=== PATIENT | female | born 1985 | race Two or more races ===

== ENCOUNTER → 2024-11-01 | Outpatient (CLI) | payer OTHER, MEDICAID, SELFPAY ==
--- NOTE | 2024-11-01 08:30 | XR_ITS ---
Examination: Abdomen sonogram, complete Date and time of exam: November 01, 2024 0826 hours INDICATIONS: Diarrhea after eating food 9 months. Technique: Multiple real-time grayscale transabdominal sonographic images of the abdomen have been obtained. Findings: No visualization gallbladder Common bile duct 10 mm no stones Pancreatic head 2.6 cm Aorta not enlarged Liver 15 cm fatty liver Normal hepatopedal portal venous flow Patent IVC Right kidney 9.8 cm cortex 1.9 cm Left kidney 9.8 cm renal cortex 2.7 cm Spleen 8.1 cm IMPRESSION: Common bile duct 10 mm, no common bile duct stones noted
== END | disposition home or self-care (01) ==
PROVIDERS: PCP Internal Medicine Gastroenterology; Referring Provider Internal Medicine Gastroenterology; Visit Provider Internal Medicine Gastroenterology
DX: R13.10 Dysphagia, unspecified (principal)
CPT/HCPCS: 76700

== ENCOUNTER 2024-11-18 05:10 | Emergency (ER) | payer BC, OTHER, MEDICAID, SELFPAY ==
[2024-11-18 05:11] VITALS: BMI 35.9
[2024-11-18 05:25] VITALS: BP 124/73; PULSE 84; RESP 18; TEMP 36.8; O2SAT 97
--- NOTE | 2024-11-18 05:42 | EDRME_ITS ---
Rapid Medical Screening Exam [facility] Arrival date/time: 11/18/24 05:10 39F with history of cholecystectomy and appendectomy presents to ED with 4 days of worsening dysuria. Patient went to and has been taking Macrobid w/o relief. Patient states there is now some low back/flank pain and N/V. Chief Complaint: Headache Vital signs: Vital Signs Temperature 98.3 F 11/18/24 05:25 Pulse Rate 84 11/18/24 05:25 Respiratory Rate 18 11/18/24 05:25 Blood Pressure 124/73 11/18/24 05:25 Pulse Oximetry (%) 97 11/18/24 05:25 Oxygen Delivery Method Room Air 11/18/24 05:25
[2024-11-18] MEDS: ONDANSETRON ODT 4 MG TABRAP PO (06:11)
[2024-11-18] MEDS: HYDROcodone/APAP 5/325 TABLET 1 TAB PO (06:11)
[2024-11-18 06:24] LABS: Basophils % (Auto) 0 % (0-2.5); Eosinophils # (Auto) 0.1 Thou/mm3 (0.0-0.5); Eosinophils % (Auto) 1 % (0-10); Hematocrit 37.9 % (36.0-46.0); Hemoglobin 13.2 g/dL (12.0-16.0); Immature Granulocytes % (Auto) 0 % (0-0); Immature Granulocytes Auto 0.03 Thou/mm3 (0.00-0.00); Lymphocytes # (Auto) 2.2 Thou/mm3 (1.0-4.8); Lymphocytes % (Auto) 28 % (10-50); Mean Corpuscular HGB Conc 34.8 g/dl (31.0-37.0); Mean Corpuscular Hemoglobin 30.5 pg (25.0-35.0); Mean Corpuscular Volume 88 fL (80-100); Monocytes # (Auto) 0.6 Thou/mm3 (0.0-0.8); Monocytes % (Auto) 8 % (0-12); Neutrophils % (Auto) 63 % (37-80); Nucleated Red Blood Cell % 0 /100 WBC (0); Platelet Count 283 Thou/mm3 (140-440); RDW Standard Deviation 39.2 fL (36.4-46.3); Red Blood Count 4.33 Miln/mm3 (4.00-5.20)
[2024-11-18 06:52] LABS: Alanine Aminotransferase 15 U/L (10-49); Albumin, Serum 4.4 gm/dL (3.5-5.0); Albumin/Globulin Ratio 1.5 (1.2-2.2); Alkaline Phosphatase 64 U/L (46-116); Anion Gap 7 (7-16); Aspartate Amino Transferase 19 U/L (0-34); BUN/Creatinine Ratio 16 Ratio (12-20); Bilirubin,Total 0.4 mg/dL (0.3-1.2); Blood Urea Nitrogen 11 mg/dL (9-23); Calcium 9.7 mg/dL (8.3-10.6); Calcium (Corrected) 9.7 mg/dL (8.5-10.1); Carbon Dioxide 27.8 mMol/L (20.0-31.0); Chloride 107 mMol/L (98-107); Creatinine (Component) 0.7 mg/dL (0.6-1.3); Estimated Creatinine Clearance 107.6 mL/min (>60); Glucose 103 mg/dL (74-106); Osmolality,Calculated 282 (275-295); Potassium 4.6 mMol/L (3.4-5.1); Sodium 142 mMol/L (136-145); Total Protein 7.4 gm/dL (5.7-8.2); eGFR > 60 See Note
[2024-11-18 06:53] LABS: Collection Type, Urine Clean Catch
[2024-11-18 07:02] LABS: Bilirubin,Urine Negative (Negative); Blood,Urine Negative (Negative); Clarity,Urine Clear (Clear/Hazy); Color,Urine Yellow (Lt Yel-Yel); Culture Indicated,Urine Not Indicated; Glucose, Urine Negative (Negative); Ketones,Urine 1+ (Negative); Leukocyte Esterase,Urine Negative (Negative); Nitrite,Urine Negative (Negative); Protein,Urine Trace (Neg - Trace); RBC,Urine 3 /hpf (0-3); Specific Gravity,Urine 1.028 (1.001-1.035); Squamous Epithelial Cell,Urine 14 /hpf (0-5); Urobilinogen,Urine Negative mg/dL (0.0-1.0); WBC,Urine 1 /hpf (0-5)
[2024-11-18 07:06] LABS: HCG Qualitative,Urine Negative
--- NOTE | 2024-11-18 08:10 | XR_ITS ---
Examination: Pelvic ultrasound, transabdominal, complete Technique: Transabdominal ultrasound of the pelvis performed using grayscale imaging Date and time of exam: November 18, 2024 0956 hours INDICATIONS: Pelvic pain radiating to the lower back months FINDINGS: Uterus 10.2 cm endometrial stripe 0.88 cm No uterine mass or intrauterine gestation Right ovary obscured by bowel gas Left ovary 3.0 cm arterial flow IMPRESSION: No uterine mass or intrauterine gestation
--- NOTE | 2024-11-18 11:55 | PD.EDFMALE ---
ED Female Urogenital RME/HPI General Chief complaint: Headache Stated complaint: HEADACHE, LOWER BACK PAIN Time Seen by Provider: 11/18/24 07:48 Arrival date/time: 11/18/24 05:10 39F with history of cholecystectomy and appendectomy presents to ED with 4 days of worsening dysuria. Patient went to and has been taking Macrobid w/o relief. Patient states there is now some low back/flank pain and N/V. There are no other associated symptoms or aggravating factors no other modifying factors, patient denies taking medication before coming to ER today Limitations: no limitations RME / HPI RME / HPI Narrative: 11/18/24 05:10 39F with history of cholecystectomy and appendectomy presents to ED with 4 days of worsening dysuria. Patient went to and has been taking Macrobid w/o relief. Patient states there is now some low back/flank pain and N/V. Related Data Previous Rx's ?Medication ?Instructions ?Recorded hydrocodone 10 mg-acetaminophen 1 tab PO Q6H PRN pain #28 tabs 02/03/24 325 mg tablet ibuprofen 800 mg tablet 800 mg PO Q8H PRN pain #60 tabs 02/03/24 hydrocodone 5 mg-acetaminophen 325 1 tab PO BID PRN pain #6 tabs 11/18/24 mg tablet Allergies Allergy/AdvReac Type Severity Reaction Status Date / Time ketorolac (From Toradol) Allergy Intermediate Hives Verified 11/18/24 05:14 nut - unspecified Allergy Verified 11/18/24 05:14 peanut Allergy Verified 11/18/24 05:14 sesame seed Allergy Verified 11/18/24 05:14 Review of Systems Review of Systems Systems Reviewed: All systems reviewed, normal except as documented Constitutional Constitutional: Reports system reviewed and no additional complaints, except as documented, Denies fever(s) and Reports headache(s) Eyes Eyes: Reports system reviewed and no additional complaints, except as documented and Denies blurry vision ENT Ears, Nose, Mouth, and Throat: Reports system reviewed and no additional complaints, except as documented, Reports headache(s), Denies nasal congestion and Denies nasal discharge Cardiovascular Cardiovascular: Reports system reviewed and no additional complaints, except as documented, Denies chest pain and Denies dyspnea Respiratory Respiratory: Reports system reviewed and no additional complaints, except as documented, Denies chest congestion, Denies cough and Denies dyspnea Gastrointestinal Gastrointestinal: Reports system reviewed and no additional complaints, except as documented and Denies abdominal pain Genitourinary Genitourinary: Reports system reviewed and no additional complaints, except as documented, Denies abnormal vaginal bleeding and Reports pelvic pain Integumentary/Breasts Skin/Breast: Reports system reviewed and no additional complaints, except as documented and Denies rash Neurologic Neurologic: Reports system reviewed and no additional complaints, except as documented, Reports as per HPI and Reports headache(s) Past Medical History Past Medical History NEUROLOGIC: Negative Neurological Disorders or Seizures CARDIAC: Positive Hypertension; Negative Cardiac Disorders or Congestive Heart Failure RESPIRATORY: Positive Sleep Apnea; Negative Chronic Obstructive Pulmonary Disease (COPD), Asthma, Emphysema, Pneumonia, Cystic Fibrosis, Tuberculosis or Pulmonary Edema GASTROINTESTINAL: Positive Gastrointestinal Disorders, Gastrointestinal Bleed, Diverticulitis, Irritable Bowel, Hiatal Hernia, Hemorrhoids, Gastroesophageal Reflux Disease and Obesity; Negative Hepatitis, Cirrhosis, Pancreatitis, Celiac Disease, Gall Bladder Disease, Esophageal Varices, Ortega's Esophagus, Colitis, Ulcerative Colitis, Diverticulosis, Ulcer, Colorectal Cancer, Crohn's Disease or Obstructive Bowel GENITOURINARY: Positive Genitourinary Disorders and Kidney Stones; Negative Renal Disease, Polycystic Kidney Disease, Neurogenic Bladder, Dialysis or Prostate Cancer REPRODUCTIVE: Positive Previous Pregnancies; Negative Breast Cancer, Endometriosis, Pelvic Inflammatory Disease or Testicular Cancer MUSCULOSKELETAL: Negative Musculoskeletal Disorders, Bone Cancer, Carpal Tunnel Syndrome or Fractures ENT: Negative Cataracts, Glaucoma, Blind, Retinal Detachment, Macular Degeneration, Ear Infection, Deafness or Eye Prosthesis ENDOCRINE: Negative Endocrine Disorders, Diabetes Mellitus Type 1 or Diabetes Mellitus Type 2 HEMATOLOGIC: Negative Blood Disorders or Sickle Cell Disease OTHER HISTORY: Positive Chicken Pox; Negative Autoimmune Disease, Shingles, Blood Transfusions, Anesthesia Reactions, Organ Transplant, MRSA, Human Immunodeficiency Virus (HIV), Measles, Mumps, Rubella (Hungarian Measles), Pertussis, Clostridium Difficile, Cancer, Breast Cancer, Cervical Cancer, Colorectal Cancer, Lung Cancer, Ovarian Cancer, Prostate Cancer or Testicular Cancer Family History FAMILY HISTORY: Negative Family Psychiatric Problems, Family Respiratory Disorders, Family Cardiac Disorders, Family Gastrointestinal Problems, Family Cancer, Family Surgery or Family Anesthesia Reaction Surgical History SURGICAL: Positive Abdominal Surgery, Tubal Ligation and Section; Negative Cardiac Surgery, Endocrine Surgery, Ear Surgery, Tympanostomy Tube, Eye Surgery, Nose Surgery, Oral Surgery, Tonsillectomy, Adenoidectomy, Cochlear Implant, Corneal Transplant, Throat Surgery, Tracheostomy, Gastric Bypass Surgery, Gastrostomy, Bowel Surgery, Nephrectomy, Transurethral Resection, Joint Replacement, Amputation, Open Reduction Internal Fixation, Arthroscopy, Neurologic Surgery, Brain Shunt, Mastectomy, Lumpectomy, Hysterectomy or Organ Transplant Social History SMOKING STATUS: Never smoker ED Exam General Limitations: Present no limitations General appearance: Present alert and in no apparent distress Head Head exam: Present atraumatic, normocephalic and normal inspection Eye Eye exam: Present normal appearance, PERRL and EOMI; Absent conjunctival injection ENT ENT exam: Present normal exam, normal oropharynx and mucous membranes moist Neck Neck exam: Present normal inspection, full ROM and trachea midline Chest Chest inspection: Present normal inspection and symmetric chest wall rise Respiratory Respiratory exam: Present normal lung sounds bilaterally; Absent respiratory distress Cardiovascular Cardiovascular exam: Present regular rate, normal rhythm and normal heart sounds Abdominal Exam Abdominal exam: Present soft and normal bowel sounds; Absent distention, tenderness, guarding, rebound or rigidity Extremities Exam Extremities exam: Present normal inspection and full ROM Back Exam Back exam: Present normal inspection and full ROM Neurological Exam Neurological exam: Present alert, oriented X3, CN II-XII intact, normal gait and reflexes normal; Absent motor sensory deficit Psychiatric Psychiatric exam: Present normal affect and normal mood Skin Skin exam: Present warm, dry, intact and normal color; Absent rash Course Quality Measures none Orders Category Date Time Status US pelvic complete Stat Exams 11/18/24 08:10 Completed CBC Stat Lab 11/18/24 06:15 Completed CMP [Comprehensive Metabolic Panel] Stat Lab 11/18/24 06:15 Completed HCG Qualitative,Urine Stat Lab 11/18/24 06:15 Completed Urinalysis, C/S if Indicated Stat Lab 11/18/24 06:15 Completed HYDROcodone*/APAP 5/325 [Dameron 5/325] Med 11/18/24 05:41 Discontinued 1 tab PO X1 ONE Ondansetron Odt [Zofran Odt] Med 11/18/24 05:41 Discontinued 4 mg PO X1 ONE Vital Signs Vital signs: Vital Signs Temperature 98.3 F 11/18/24 05:25 Pulse Rate 84 11/18/24 05:25 Respiratory Rate 18 11/18/24 05:25 Blood Pressure 124/73 11/18/24 05:25 Pulse Oximetry (%) 97 11/18/24 05:25 Oxygen Delivery Method Room Air 11/18/24 05:25 O2 saturation 97% room air within limits Urogenital - Female MDM Narrative MDM Narrative:: 39F with history of cholecystectomy and appendectomy presents to ED with 4 days of worsening dysuria. Patient went to and has been taking Macrobid w/o relief. Patient states there is now some low back/flank pain and N/V. There are no other associated symptoms or aggravating factors no other modifying factors, patient denies taking medication before coming to ER today On exam patient well-appearing does not appear ill or toxic in no acute distress Lab work and imaging obtained no acute emergent findings noted Patient discharged home in no distress to follow-up with primary care doctor in the next 24 to 48 hours and for any worsening symptoms to return to the ER immediately Patient data External records reviewed:: [facility] previous records Clinical information provided by:: patient Social determinants that could affect healthcare access:: none Patient has the following chronic illnesses:: None How is presenting disease/condition affected by chronic disease/condition?: no chronic disease Evaluation data The following diagnostics were reviewed and interpreted by me:: lab results and radiology exam(s) Lab and/or radiology exams considered but not ordered:: Labs radiology obtain Interpretation Summary: Reviewed by me I Medications / Prescriptions Medications or Prescriptions considered but not ordered:: Given Medication administrations:: Medication Administration History Discontinued Medications Hydrocodone Bitart/Acetaminophen (Hydrocodone/Apap 5/325 Tablet) 1 tab PO X1 ONE Stop: 11/18/24 05:42 Last Admin: 11/18/24 06:11 Dose: 1 tab Documented By: LUIS M Ondansetron HCl (Ondansetron Odt 4 Mg Tabrap) 4 mg PO X1 ONE; Protocol Stop: 11/18/24 05:42 Last Admin: 11/18/24 06:11 Dose: 4 mg Documented By: LUIS M Given Consultations Consultation(s) initiated? (list below): No Diagnosis Urogenital Female Differential Diagnosis: urinary tract infection, bacterial vaginosis, trichomoniasis, vaginitis, ruptured ovarian cyst, cystitis and other (UTI) Most likely diagnosis given after review of the tests above:: Pelvic pain, dysuria Admission Indicated Admission indicated?: not indicated Admission Request Was there a request for admission?: No Disposition Plan Disposition Plan: Discharge Discharge Attestation Discharge Attestation: The patient and all family members were given an opportunity to ask questions and understood the discharge instructions. Discharge instructions specifically effects, indications for sooner follow up or return to the emergency department, and the expected course of current diagnosis. Patient condition: Stable Discharge Plan Plan Patient Disposition: HOME (Self Care) Disposition Comment: Stable Prescriptions/Referrals Prescriptions/Med Rec: New hydrocodone-acetaminophen 5-325 mg tablet 1 tab PO BID MDD 10 PRN (Reason: pain) Qty: 6 0RF No Action ibuprofen 800 mg tablet 800 mg PO Q8H PRN (Reason: pain) Qty: 60 0RF hydrocodone-acetaminophen 10-325 mg tablet 1 tab PO Q6H MDD 4 PRN (Reason: pain) Qty: 28 0RF Referrals: No Primary/Family,Physician [Primary Care Provider] - In 1 week Problem List Clinical Impression: Pelvic pain, Dysuria Patient/Caregiver Discharge Instructions Education Materials: Dysuria Additional Instructions: Please follow up with your primary care doctor in the next 24-48hrs for any worsening symptoms return here immediately Print Language: Occitan Stand Alone Forms: Tammy Award Info., Work/School Release, Patient Portal Info Letter PA/GINO Supervising Physician ALPHONSO/GINO Supervising Physician: Dr Anderson
== END 2024-11-18 12:06 | disposition home or self-care (01) ==
PROVIDERS: Physician Assistant; Emergency Provider Emergency Medicine
DX: R30.0 Dysuria (principal); R10.2 Pelvic and perineal pain
CPT/HCPCS: 36415; 76856; 80053; 81001; 81025; 85025; 99284; Q0162; A9270

== ENCOUNTER 2024-12-21 08:20 | Day surgery (SDC) | payer BC, OTHER, MEDICAID, SELFPAY ==
[2024-12-20 11:52] VITALS: BMI 35.1
[2024-12-21] VITALS (13 sets, daily range): BP systolic 115–144; BP diastolic 67–114; PULSE 67–117; RESP 15–23; TEMP 36.3–36.8; O2SAT 96–100; BMI 34.5
[2024-12-21] MEDS: MIDAZOLAM INJ 1 MG/ML VIAL 2 ML (ASD USE ONLY) 2 MG IV (10:45)
[2024-12-21] MEDS: SODIUM CHLORIDE 0.9% 500 ML 500 ML 20 ML IV (10:45)
[2024-12-21] MEDS: fentaNYL CIT INJ 50 mCg/ML AMP 2ML (ASD USE ONLY) IV (10:46)
[2024-12-21] MEDS: DiphenhydrAMINE INJ 50 MG/ML VIAL 25 MG IV (10:46)
[2024-12-21] MEDS: SIMETHICONE 40 MG/0.6 ML ORAL SYRINGE PO (10:48)
== END 2024-12-21 11:33 | disposition home or self-care (01) ==
PROVIDERS: PCP Internal Medicine; Referring Provider Internal Medicine Gastroenterology; Visit Provider Internal Medicine Gastroenterology
PROC: (CPT 43239; principal; 2024-12-21 08:30)
PROC: 0DBE8ZX Excision of Large Intestine, Via Natural or Artificial Opening Endoscopic, Diagnostic (ICD-10-PCS; CPT 45380; 2024-12-21 08:30)
DX: K29.50 Unspecified chronic gastritis without bleeding (principal); K57.30 Diverticulosis of large intestine without perforation or abscess without bleeding; K64.9 Unspecified hemorrhoids; E66.9 Obesity, unspecified; E88.810 Metabolic syndrome; Z68.34 Body mass index [BMI] 34.0-34.9, adult
CPT/HCPCS: 43239; 45380; 81025; A4649; J1200; J2250; J3010; J7040; A9270